=== PATIENT | female | born 1965 | race Caucasian/White ===

== ENCOUNTER 2016-05-17 00:02 | Emergency (ER) | payer OTHER ==
[~2016-05-17] VITALS: Ht 160 cm; Wt 54.0 kg
[~2016-05-17 00:02] MED LIST: CEPH-442 PO
[2016-05-17 00:06] VITALS: Ht 160 cm; Wt 54.0 kg
[2016-05-17] MEDS ORDERED: KETOROLAC 30 MG INJ IM STA (01:51)
[2016-05-17] MEDS ORDERED: DIPHENHYDRAMINE 50 MG CAP PO ONE (02:00)
[2016-05-17] MEDS ORDERED: predniSONE 20 MG TAB PO ONE (02:00)
[2016-05-17] MEDS ORDERED: EPIN0.3P4 INJ (02:01)
[2016-05-17] MEDS ORDERED: PRED20TA PO (02:01)
[2016-05-17] MEDS ORDERED: BEN50 PO (02:01)
--- NOTE | 2016-05-17 02:20 | ERD ---
ER Documentation Chief Complaint Date/Time DATE: 05/17/16 TIME: 02:16 Chief Complaint lip swelling today HPI 50-year-old female history of hepatitis C comes to emergency department with left-sided lower lip swelling for the past 2 days. Patient states that she had spontaneous swelling, does not have any recollection of any new foods, medications, lotions or creams. She denies any known drug allergies. She was seen earlier today at all of you and was told that this is a allergic reaction. She then was concerned that it might be infected and she borrowed 3 capsules of antibiotics from a friend and states that the lip swelling got worse. She denies any trouble swallowing, voice changes, drooling or shortness of breath. She denies any history of taking management hypertensive including OSMAN inhibitor. ROS All systems reviewed and are negative except as per history of present illness. Medications Home Meds Active Scripts Epinephrine (Epipen 2-Carlos) 0.3 Mg/0.3 Ml Pen.injctr, 1 EA INJ ONCE Y for ALLERGIC REACTION, #1 EA Prov:YAKELIN BRAR PA-C 05/17/16 Diphenhydramine Hcl* (Benadryl*) 50 Mg Cap, 50 MG PO Q6 Y for swelling, #30 CAP Prov:YAKELIN BRAR PA-C 05/17/16 Prednisone* (Prednisone*) 20 Mg Tab, 40 MG PO DAILY for 4 Days, TAB Prov:YAKELIN BRAR PA-C 05/17/16 Cephalexin* (Keflex*) 250 Mg Capsule, 250 MG PO Q6, #28 CAP Prov:MARYLOU GANN 12/21/15 Reported Medications [None] No Conflict Check 10/17/09 Allergies Allergies: Coded Allergies: No Known Drug Allergy (Verified Allergy, Mild, 03/13/12) PMhx/Soc Medical and Surgical Hx: pt denies Surgical Hx History of Surgery: No Anesthesia Reaction: No Hx Neurological Disorder: No Hx Respiratory Disorders: No Hx Cardiac Disorders: No Hx Psychiatric Problems: No Hx Miscellaneous Medical Probl: Yes (HEP C) Hx Alcohol Use: No Hx Substance Use: Yes (marijuana) Hx Tobacco Use: Yes Smoking Status: Current every day smoker Physical Exam Vitals Vital Signs Date Time Temp Pulse Resp B/P Pulse Ox O2 Delivery O2 Flow Rate FiO2 05/17/16 00:06 97.9 84 20 141/92 98 Physical Exam General: Well-developed, well-nourished. The patient appears in no acute distress. HEENT: Head is normocephalic, atraumatic. No scleral icterus. Pupils are equal , round, and reactive. Oral mucous membranes are moist. No pharyngeal erythema. Left-sided lower lip is swollen, tender to palpation, there are multiple aphthous ulcers. Oropharynx is clear, no trismus, no voice changes. Neck: Supple. Nontender. Lungs: Clear to auscultation. Normal air movement. Heart: Regular rate and rhythm. S1 and S2 are normal. No murmurs, gallops, or rubs. Abdomen: Soft, nontender, nondistended. Bowel sounds are normoactive. Extremities: No clubbing or cyanosis. Normal pulses. Moving extremities x 4. No weakness. Neurologic: Alert and oriented 3. No focal deficits. Skin: Normal turgor. No rash or lesions. Results 24 hrs Current Medications Medications (Trade) Dose Ordered Sig/Brett Route PRN Reason Start Time Stop Time Status Last Admin Dose Admin Ketorolac Tromethamine (Toradol) 30 mg ONCE STAT IM 05/17/16 01:51 05/17/16 01:53 DC Prednisone (Prednisone) 40 mg ONCE ONCE PO 05/17/16 02:00 05/17/16 02:01 DC Diphenhydramine HCl (Benadryl) 50 mg ONCE ONCE PO 05/17/16 02:00 05/17/16 02:01 DC Procedures/MDM ED course: Patient was given prednisone, Benadryl as well as Toradol 30 mg IM for pain. 50-year-old female presents with localized lip swelling, of unknown origin. Patient will be given Benadryl, prednisone as well as EpiPen for home. There are no signs of an airway obstructive process. Additionally she was reassured that there are no signs of a bacterial infection, including cellulitis. The sores do appear to be viral. Patient's allergic symptoms have stabilized while they have been evaluated in the department without evidence of persistent systemic reaction. Patient is healthy and capable of treating and responding to rebound reactions. Patient appropriate for outpatient allergy work up and treatment. Departure Diagnosis: Primary Impression: Lip swelling Additional Impression: Sore lip Condition: Good Patient Instructions: Allergic Reaction, Other (Local) Referrals: COMMUNITY CLINICS YOU HAVE RECEIVED A MEDICAL SCREENING EXAM AND THE RESULTS INDICATE THAT YOU DO NOT HAVE A CONDITION THAT REQUIRES URGENT TREATMENT IN THE EMERGENCY DEPARTMENT. FURTHER EVALUATION AND TREATMENT OF YOUR CONDITION CAN WAIT UNTIL YOU ARE SEEN IN YOUR DOCTORS OFFICE WITHIN THE NEXT 1-2 DAYS. IT IS YOUR RESPONSIBILITY TO MAKE AN APPOINTMENT FOR FOLOW-UP CARE. IF YOU HAVE A PRIMARY DOCTOR --you should call your primary doctor and schedule an appointment IF YOU DO NOT HAVE A PRIMARY DOCTOR YOU CAN CALL OUR PHYSICIAN REFERRAL HOTLINE AT IF YOU CAN NOT AFFORD TO SEE A PHYSICIAN YOU CAN CHOSE FROM THE FOLLOWING [facility] [address] [facility]. [facility] [address] [facility]. [facility] [address] [facility]. [facility] [address] [facility] [address] [facility]. [facility] [address] [facility]. [facility] YOU HAVE RECEIVED A MEDICAL SCREENING EXAM AND THE RESULTS INDICATE THAT YOU DO NOT HAVE A CONDITION THAT REQUIRES URGENT TREATMENT IN THE EMERGENCY DEPARTMENT. FURTHER EVALUATION AND TREATMENT OF YOUR CONDITION CAN WAIT UNTIL YOU ARE SEEN IN YOUR DOCTORS OFFICE WITHIN THE NEXT 1-2 DAYS. IT IS YOUR RESPONSIBILITY TO MAKE AN APPOINTMENT FOR FOLOW-UP CARE. IF YOU HAVE A PRIMARY DOCTOR --you should call your primary doctor and schedule and appointment IF YOU DO NOT HAVE A PRIMARY DOCTOR YOU CAN CALL OUR PHYSICIAN REFERRAL HOTLINE AT . IF YOU CAN NOT AFFORD TO SEE A PHYSICIAN YOU CAN CHOSE FROM THE FOLLOWING [facility] INSTITUTIONS: [facility] [address] [place] [address] [facility] [address] [place] [address] [facility] [address] [place] [address] [facility] Additional Instructions: Call your primary care doctor TOMORROW for an appointment during the next 1-2 days.See the doctor sooner or return here if your condition worsens before your appointment time. YAKELIN BRAR PA-C May 17, 2016:19
[2016-05-17 03:03] VITALS: BP 120/84; PULSE 78; RESP 20; TEMP 98.3
== END 2016-05-17 03:00 | disposition home or self-care (01) ==
LOC: FTE 00:02
DX: R22.0 Localized swelling, mass and lump, head (principal); K13.0 Diseases of lips; F17.210 Nicotine dependence, cigarettes, uncomplicated
CPT/HCPCS: 96372; J1885; J7512; Z7502; Z7610

== ENCOUNTER 2016-05-18 23:34 | Emergency (ER) | payer OTHER ==
[~2016-05-18] VITALS: Ht 157.5 cm; Wt 54.0 kg
[~2016-05-18 23:34] MED LIST changes: +BEN50 PO; +EPIN0.3P4 INJ; +PRED20TA PO
[2016-05-18 23:39] VITALS: Ht 157.5 cm; Wt 54.0 kg
[2016-05-19] MEDS ORDERED: CLINDAMYCIN 300 MG INJ IM ONE (00:30)
[2016-05-19] MEDS ORDERED: CLIN-73 PO (00:55)
[2016-05-19] MEDS ORDERED: IBUP400T22 PO (00:55)
[2016-05-19] MEDS ORDERED: BACTDS PO (00:55)
--- NOTE | 2016-05-19 01:18 | ERD ---
ER Documentation Chief Complaint Date/Time DATE: 05/19/16 TIME: 01:14 Chief Complaint lower lip swelling x 2 days. seen here yesterday,at [facility] today HPI 50 year old female with a past medical history of hepatitis C presents the ED complaining of lower lip swelling that started 3 days ago. Reports that she feels like she has a fever and is very painful. Dates that she was seen here yesterday as well as [place] and was diagnosed with allergic reaction. Reports that she has been taking prednisone and Benadryl without relief. Denies taking an OSMAN inhibitor. Denies any new use of medications, lotions or creams. Denies any drug allergies. Denies eating any new foods. Denies any dysphagia, voice changes, drooling or shortness of breath. Denies any cough, rhinorrhea, fever, chills, chest pain, abdominal pain, nausea, vomiting. ROS All systems reviewed and are negative except as per history of present illness. Medications Home Meds Active Scripts Ibuprofen* (Motrin*) 400 Mg Tab, 400 MG PO Q6, #30 TAB Prov:SIMONE PINK PA-C 05/19/16 Clindamycin Hcl* (Clindamycin Hcl*) 300 Mg Capsule, 300 MG PO TID for 7 Days, CAP Prov:SIMONE PINK PA-C 05/19/16 Sulfamethoxazole-Trimethoprim* (Bactrim* DS) 800-160 Mg Tab, 1 TAB PO BID for 7 Days, TAB Prov:SIMONE PINK PA-C 05/19/16 Epinephrine (Epipen 2-Carlos) 0.3 Mg/0.3 Ml Pen.injctr, 1 EA INJ ONCE Y for ALLERGIC REACTION, #1 EA Prov:YAKELIN BRAR PA-C 05/17/16 Diphenhydramine Hcl* (Benadryl*) 50 Mg Cap, 50 MG PO Q6 Y for swelling, #30 CAP Prov:YAKELIN BRAR PA-C 05/17/16 Prednisone* (Prednisone*) 20 Mg Tab, 40 MG PO DAILY for 4 Days, TAB Prov:YAKELIN BRAR PA-C 05/17/16 Cephalexin* (Keflex*) 250 Mg Capsule, 250 MG PO Q6, #28 CAP Prov:MARYLOU GANN 12/21/15 Reported Medications [None] No Conflict Check 10/17/09 Allergies Allergies: Coded Allergies: No Known Drug Allergy (Verified Allergy, Mild, 05/18/16) PMhx/Soc Medical and Surgical Hx: pt denies Surgical Hx History of Surgery: No Anesthesia Reaction: No Hx Neurological Disorder: No Hx Respiratory Disorders: No Hx Cardiac Disorders: No Hx Psychiatric Problems: No Hx Miscellaneous Medical Probl: Yes (HEP C) Hx Alcohol Use: No Hx Substance Use: Yes (marijuana) Hx Tobacco Use: Yes Smoking Status: Current every day smoker Physical Exam Vitals Vital Signs Date Time Temp Pulse Resp B/P Pulse Ox O2 Delivery O2 Flow Rate FiO2 05/18/16 23:39 99.1 102 20 153/77 98 Physical Exam Const: [id number], well-nourished. In no acute distress. Head: Atraumatic, normocephalic Eyes: Normal Conjunctiva without injection. No purulent discharge. PERRL. EOMI ENT: Normal external ear. Ear canal without erythema. Tympanic membrane pearly rueda without effusion or bulging. Nasal canal clear with normal turbinates. Moist oropharynx without tonsillar exudates. Non-erythematous pharynx. Indurated slightly warm and erythematous lower lip edema with no fluctuance. Uvula midline. No drooling. No trismus. Neck: Full range of motion. No meningismus. No cervical lymphadenopathy. Resp: Clear to auscultation bilaterally. No wheezing, rhonchi, rales, or crackles. No accessory muscle use. No retractions. Cardio: Regular rate and rhythm. No murmurs, rubs or gallops. Abd: Soft, non tender, non distended. Normal bowel sounds. No palpable masses. No rebound tenderness. No guarding. Skin: No petechiae or rashes Back: No midline tenderness. No CVA tenderness. Ext: No cyanosis, or edema. Neur: Awake and alert. Psych: Normal Mood and Affect Results 24 hrs Current Medications Medications (Trade) Dose Ordered Sig/Brett Route PRN Reason Start Time Stop Time Status Last Admin Dose Admin Clindamycin Phosphate (Cleocin) 300 mg ONCE ONCE IM 05/19/16 00:30 05/19/16 00:31 DC 05/19/16 00:35 Procedures/MDM This is a 50-year-old female with a past medical history of hepatitis C presents to the ED complaining of lower lip swelling that started 3 days ago. Patient is afebrile and nontoxic-appearing. Since patient has seen no relief with taking prednisone and Benadryl, patient symptoms today are likely due to a possible infection. Clinically, patient's lower lip is slightly warm to touch, erythematous and indurated. No indication for incision and drainage at this time. Patient is appropriate for outpatient antibiotics. Patient was treated here in the ED with 200 mg IM clindamycin. Low suspicion for sepsis, deep space infection, peritonsillar abscess, retropharyngeal abscess, dental abscess , strep pharyngitis, Virgil's angina, or other emergent conditions. This case was discussed with my supervising physician, Dr. Montgomery who agreed with the management and discharge plan. Discharge medications: Bactrim, Clindamycin, Ibuprofen Follow up with primary care physician in 1-2 days. Instructed patient to return to the ED sooner for any worsening symptoms. Patient's questions were answered. Patient understood and agreed with discharge plan. Patient discharged stable. Departure Diagnosis: Primary Impression: Lip swelling Condition: Stable Patient Instructions: Cellulitis Referrals: REBEKAH HARMON (PCP) [facility] YOU HAVE RECEIVED A MEDICAL SCREENING EXAM AND THE RESULTS INDICATE THAT YOU DO NOT HAVE A CONDITION THAT REQUIRES URGENT TREATMENT IN THE EMERGENCY DEPARTMENT. FURTHER EVALUATION AND TREATMENT OF YOUR CONDITION CAN WAIT UNTIL YOU ARE SEEN IN YOUR DOCTORS OFFICE WITHIN THE NEXT 1-2 DAYS. IT IS YOUR RESPONSIBILITY TO MAKE AN APPOINTMENT FOR FOLOW-UP CARE. IF YOU HAVE A PRIMARY DOCTOR --you should call your primary doctor and schedule an appointment IF YOU DO NOT HAVE A PRIMARY DOCTOR YOU CAN CALL OUR PHYSICIAN REFERRAL HOTLINE AT IF YOU CAN NOT AFFORD TO SEE A PHYSICIAN YOU CAN CHOSE FROM THE FOLLOWING [facility] [address] [facility]. [facility] [address] [facility]. [facility] [address] [facility] [address] [facility]. [facility] [address] [facility]. [facility]. [address] [facility]. [facility] YOU HAVE RECEIVED A MEDICAL SCREENING EXAM AND THE RESULTS INDICATE THAT YOU DO NOT HAVE A CONDITION THAT REQUIRES URGENT TREATMENT IN THE EMERGENCY DEPARTMENT. FURTHER EVALUATION AND TREATMENT OF YOUR CONDITION CAN WAIT UNTIL YOU ARE SEEN IN YOUR DOCTORS OFFICE WITHIN THE NEXT 1-2 DAYS. IT IS YOUR RESPONSIBILITY TO MAKE AN APPOINTMENT FOR FOLOW-UP CARE. IF YOU HAVE A PRIMARY DOCTOR --you should call your primary doctor and schedule and appointment IF YOU DO NOT HAVE A PRIMARY DOCTOR YOU CAN CALL OUR PHYSICIAN REFERRAL HOTLINE AT . IF YOU CAN NOT AFFORD TO SEE A PHYSICIAN YOU CAN CHOSE FROM THE FOLLOWING [facility] INSTITUTIONS: [facility] [address] [place] [address] [facility] [address] [place], [place] [id number] [place] [address] [address] [place] [address] [facility] Additional Instructions: Follow up in 2 days in your clinic or here in the ED for wound check. Return to this facility if you are not improving as expected. SIMONE PINK PA-C May 19, 2016 01:18
== END 2016-05-19 01:09 | disposition home or self-care (01) ==
LOC: FTE 23:34
DX: R60.0 Localized edema (principal); F17.210 Nicotine dependence, cigarettes, uncomplicated
CPT/HCPCS: 96372; Z7502; Z7610

== ENCOUNTER 2016-06-03 11:07 | Emergency (ER) | payer OTHER ==
[~2016-06-03] VITALS: Ht 157.5 cm; Wt 52.0 kg
[~2016-06-03 11:07] MED LIST changes: +BACTDS PO; +CLIN-73 PO; +IBUP400T22 PO
[2016-06-03 11:09] VITALS: Ht 157.5 cm; Wt 52.0 kg
[2016-06-03] MEDS ORDERED: BACTDS PO (11:53)
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
== END 2016-06-03 12:25 | disposition home or self-care (01) ==
LOC: FTE 11:07
DX: L03.90 Cellulitis, unspecified (principal); Z87.891 Personal history of nicotine dependence
CPT/HCPCS: 99283

== ENCOUNTER 2017-03-27 01:42 | Emergency (ER) | END 2017-03-27 04:39 | disposition home or self-care (01) ==